=== PATIENT | male | born 1970 | race Two or more races ===

== ENCOUNTER 2019-07-06 09:54 | Day surgery (SDC) | payer OTHER ==
[2019-07-05 12:50] VITALS: BMI 28.1
--- NOTE | 2019-07-06 09:53 | HP ---
Satellite H - Chief Complaint Chief Complaint: right cts - Past Medical History Allergies/Adverse Reactions: Allergies Allergy/AdvReac Type Severity Reaction Status Date / Time No Known Drug Allergies Allergy Verified 07/05/19 12:55 pear Allergy "throat Verified 07/05/19 12:55 itchy" - Current Medications Current Medications: Home Medications Medication Instructions Recorded Multivitamin [One-Daily 1 each PO DAILY 07/05/19 Multi-Vitamin] [place]-3 Fatty Acids/Fish Oil [Fish 1 each PO DAILY 07/05/19 Oil 1,000 mg Capsule] Hydrocodone/Acetaminophen 1 each PO Q6H #15 tablet MDD 4 07/06/19 [Hydrocodone-Acetamin 5-325 mg] Satellite Physical Exam - Physical Examination General Appearance: Well Nourished, Well Developed, Alert & Oriented x3 ENT: Clear Lung: Normal air movement Extremities: Other (right hand- + tinels, + phalens, emg + cts) Neurological: Intact, Alert, Oriented Satellite Impression/Plan - Impression/Plan Impression: right cts Operative Procedure: right ctr Date to be Performed: 07/06/19
[2019-07-06] MEDS ORDERED: PROPOFOL 20 ML ONE (14:16)
[2019-07-06] MEDS ORDERED: SUCCINYLCHOLINE CHLORIDE 200 MG/10 ML SYRINGE ONE (14:16)
[2019-07-06] MEDS ORDERED: MIDAZOLAM HCL 2 MG/2 ML SINGLE DOSE VIAL ONE (14:16)
[2019-07-06] MEDS ORDERED: ceFAZolin SODIUM 1 GM VIAL ONE (14:17)
[2019-07-06] MEDS ORDERED: LIDOCAINE HCL/PF 2% SDV 5ML VIAL ONE (14:17)
[2019-07-06] MEDS ORDERED: KETOROLAC TROMETHAMINE 30 MG/1 ML VIAL ONE (14:17)
[2019-07-06] MEDS ORDERED: DEXAMETHASONE SOD PHOSPHATE 4 MG/1 ML VIAL ONE (14:17)
[2019-07-06] MEDS ORDERED: BUPIVACAINE HCL/PF 0.5% (5 MG/ML) 30 ML VIAL IJ ONE ×3 (14:30→14:50)
[2019-07-06] MEDS ORDERED: ceFAZolin SODIUM 1 GM VIAL IVPB ONE (14:34)
[2019-07-06] MEDS ORDERED: LIDOCAINE HCL 1%, 10 MG/ML (20ML VIAL) NR ONE ×2 (14:34→14:50)
--- NOTE | 2019-07-06 15:16 | OP ---
Operative Note - Note: Operative Date: 07/06/19 Pre-Operative Diagnosis: right CTS Operation: right CTR, tenosynovectomy Post-Operative Diagnosis: Same as Pre-op Surgeon: Garo Fuentes Anesthesiologist/RESTAURANT AND BAR MANAGER: Fady Baez Anesthesia: Local, MAC Specimens Removed: tenosynovium Estimated Blood Loss (mls): 0 Drains, Volume Out (mls): 0 Blood Volume Replaced (mls): 0 Fluid Volume Replaced (mls): 600 Operative Report Dictated: Yes
[2019-07-06 15:44] VITALS: TEMP 97.9
[2019-07-06] MEDS ORDERED: ACETAMINOPHEN 325 MG TABLET (FP) PO PRN (15:44)
[2019-07-06] MEDS ORDERED: oxyCODONE HCL 5 MG TABLET PO PRN (15:44)
[2019-07-06] MEDS ORDERED: ONDANSETRON 4 MG/2 ML VIAL IVPUSH PRN (15:44)
[2019-07-06] MEDS ORDERED: LACTATED RINGERS SOLUTION 1,000 ML IV SCH (15:45)
[2019-07-06 16:26] VITALS: BP 119/77; PULSE 67
--- NOTE | 2019-07-06 17:47 | OP ---
DATE OF OPERATION: 07/06/2019 PREOPERATIVE DIAGNOSIS: Right carpal tunnel syndrome, tenosynovitis. POSTOPERATIVE DIAGNOSIS: Right carpal tunnel syndrome and tenosynovitis. OPERATION: Right carpal tunnel release and tenosynovectomy. SURGEON: Dayron Colin M.D. ASSISTANTS: None. ANESTHESIOLOGIST: Fady Baez CRNA ANESTHESIA: MAC anesthesia with local injection with 12 mL of 0.5% Marcaine and 1% Lidocaine mix. DRAINS: None. COMPLICATIONS: None. SPECIMENS: Tenosynovium, right wrist. BLOOD LOSS: None. BLOOD GIVEN: None. FLUID REPLACEMENT: 600 mL of Plasmalyte. INDICATION: This patient is a 49-year-old male with the preoperative diagnosis of right carpal tunnel syndrome. After understanding the potential risks, complications, alternatives, benefits to surgery versus nonsurgical treatment, the patient elected to undergo this procedure. He understands he may not get complete relief of his symptoms including a continuation of the numbness. DESCRIPTION OF PROCEDURE: The patient was brought to the operating room, peripheral IV placed and intravenous sedation was given. One gram of intravenous Ancef was given. MAC anesthesia was induced. A tourniquet was applied to the right upper arm and the right upper extremity was prepped and draped in sterile fashion. The entire case was done under 3.8 loupe magnification. A marking pen was utilized to omid out a longitudinal incision in an already existing skin crease. Twenty mL of 0.5% Marcaine mixed with 1% Lidocaine was injected in and around the surgical incision. The right upper extremity was elevated, exsanguinated with an Esmarch bandage and the tourniquet inflated to 250 mmHg. A No. 15 scalpel blade was utilized to cut down through the skin. Subcutaneous hemostasis was achieved with the bipolar cautery. Dissection was done through the superficial palmar fascia. Self-retaining retractors were placed into the wound. Under direct visualization, the transverse carpal ligament was transected with a No. 15 scalpel blade, exposing the median nerve and the contents of the carpal tunnel. The distal and proximal extents of the release were completed with a Littler scissor and checked with irrigation and my small finger. They were seen to be complete. Limited dissection was done on the radial side of the median nerve and more extensive dissection was done on the ulnar side of the median nerve. The patients nerve was seen to be quite compressed by epineurium and therefore a limited epineurotomy was performed. A Ragnell retractor was used to gently retract the median nerve in a radial direction. The patient had a lot of tenosynovitis and therefore a tenosynovectomy was performed off all 9 flexor tendons. This was passed off the field as tenosynovium right wrist. The floor of the carpal tunnel was checked. There were no abnormal masses or ganglion cysts. The area was copiously irrigated and washed out and closure begun. Undyed 4-0 Vicryl was used to close the deep dermal layer. Final skin reapproximation was done with horizontal mattress 4-0 nylon sutures. The area was then washed and dried, covered with Xeroform, 4x4s, fluffs between the fingers, Webril and a 4-inch plaster roll was utilized to make a volar splint, which was then wrapped with Yoli and Coban. The tourniquet was taken down after a total tourniquet time of 15 minutes. There were no complications during the case. The patient tolerated the procedure well and was brought to the ambulatory recovery room in stable condition. DAYRON COLIN M.D. [id number]
--- NOTE | 2019-07-11 16:11 | PATH ---
Surgical Pathology Report Patient Name: JOANNA YOST [facility]. Rec. #: [id number] /Age/Gender: 1970 (Age: 49) / M Account: [id number] Location: [facility] Taken: 07/06/2019 Received: 07/07/2019 Reported: 07/11/2019 Physicians: Garo Fuentes M.D. Specimen(s) Received TENOSYNOVIUM Clinical History Right carpal tunnel Final Diagnosis TENOSYNOVIUM, RIGHT, CARPAL TUNNEL RELEASE: BENIGN DENSE CONNECTIVE TISSUE. Electronically Signed Didi Peterson M.D. Gross Description Received in formalin labeled "tenosynovium," is a 1.9 x 1.5 x 0.3 cm aggregate of sawyer-yellow portions of soft tissue, consistent with tenosynovium. The specimen is submitted in toto in one cassette. 07/08/201907/08/2019
== END 2019-07-06 16:25 | disposition home or self-care (01) ==
LOC: JASU-SURG 09:54
PROVIDERS: ATTEND Orthopaedic Surgery
PROC: 0LB50ZZ Excision of Right Lower Arm and Wrist Tendon, Open Approach (ICD-10-PCS; 2019-07-06)
PROC: 0LB50ZZ Excision of Right Lower Arm and Wrist Tendon, Open Approach (ICD-10-PCS; 2019-07-06)
PROC: 0LB50ZZ Excision of Right Lower Arm and Wrist Tendon, Open Approach (ICD-10-PCS; 2019-07-06)
PROC: 0LB50ZZ Excision of Right Lower Arm and Wrist Tendon, Open Approach (ICD-10-PCS; 2019-07-06)
PROC: 0LB50ZZ Excision of Right Lower Arm and Wrist Tendon, Open Approach (ICD-10-PCS; 2019-07-06)
PROC: 0LB50ZZ Excision of Right Lower Arm and Wrist Tendon, Open Approach (ICD-10-PCS; 2019-07-06)
PROC: 0LB50ZZ Excision of Right Lower Arm and Wrist Tendon, Open Approach (ICD-10-PCS; 2019-07-06)
PROC: 0LB50ZZ Excision of Right Lower Arm and Wrist Tendon, Open Approach (ICD-10-PCS; 2019-07-06)
PROC: 0LB50ZZ Excision of Right Lower Arm and Wrist Tendon, Open Approach (ICD-10-PCS; 2019-07-06)
PROC: 01N50ZZ Release Median Nerve, Open Approach (ICD-10-PCS; principal; 2019-07-06 12:30)
DX: G56.01 Carpal tunnel syndrome, right upper limb (principal); M65.841 Other synovitis and tenosynovitis, right hand
CPT/HCPCS: 88304-TC

== ENCOUNTER 2020-09-20 15:26 | Emergency (ER) | payer OTHER ==
[2020-09-20 15:40] VITALS: BP 132/79; PULSE 70; TEMP 98.7; BMI 29.2
[2020-09-20] MEDS ORDERED: LIDOCAINE 5% TOPICAL PATCH TP ONE (16:32)
[2020-09-20] MEDS ORDERED: KETOROLAC TROMETHAMINE 60 MG/2 ML VIAL IM ONE (16:32)
[2020-09-20] MEDS ORDERED: LIDOCAINE 5% TOPICAL PATCH ONE (16:44)
[2020-09-20] MEDS ORDERED: KETOROLAC TROMETHAMINE 30 MG/1 ML VIAL ONE (16:44)
== END 2020-09-20 17:04 | disposition home or self-care (01) ==
LOC: JERFT 15:26
PROC: 3E0233Z Introduction of Anti-inflammatory into Muscle, Percutaneous Approach (ICD-10-PCS; principal; 2020-09-20)
DX: M54.5 Low back pain (principal)
CPT/HCPCS: 99284-25

== ENCOUNTER 2024-09-07 17:12 | Emergency (ER) | payer OTHER ==
[2024-09-07 17:25] VITALS: BP 133/76; PULSE 63; RESP 18; TEMP 97.9; BMI 29.2
[2024-09-07] MEDS ORDERED: predniSONE 20 MG TABLET (UD) PO ONE (17:52)
[2024-09-07] MEDS ORDERED: valACYclovir HCL 500 MG TABLET (FP) PO ONE (18:00)
[2024-09-07] MEDS ORDERED: predniSONE 20 MG TABLET (UD) ONE (18:30)
[2024-09-07] MEDS ORDERED: valACYclovir HCL 500 MG TABLET (FP) ONE (18:31)
== END 2024-09-07 18:51 | disposition home or self-care (01) ==
LOC: JER 17:12
DX: G51.0 Bell's palsy (principal); R29.810 Facial weakness
CPT/HCPCS: 36415; 86618; 99283-25